=== PATIENT | female | born 1990 | race Caucasian/White ===

== ENCOUNTER 2016-07-09 20:00 | Emergency (ER) | payer BC ==
--- NOTE | 2016-07-09 20:24 | ER Document Report ---
ED Medical Screen (RME) - General Stated Complaint: LEFT LEG SWELLING/PAIN Time seen by provider: 20:20 Mode of Arrival: Ambulatory Information source: Patient Notes: 25-year-old female normally healthy started having left lateral lower leg pain on Friday. There was no injury or exercise. She noticed a lump on when to lower lateral leg tonight. The pain radiates into her left calf. No history of hormones, Implanon, cancer, travel, or cancer. Denies . TRAVEL OUTSIDE OF THE [place] IN LAST 30 DAYS: No - Related Data Allergies/Adverse Reactions: No Known Allergies Allergy (Verified 10/21/15 18:57) Past Medical History Past Surgical History: Reports: Hx Oral Surgery - wisdom teeth removed - Immunizations Hx Diphtheria, Pertussis, Tetanus Vaccination: Yes
[2016-07-09 20:27] VITALS: BP 130/74
--- NOTE | 2016-07-09 21:26 | ER Document Report ---
ED Extremity Problem, Lower - General Chief Complaint: Leg Pain Stated Complaint: LEFT LEG SWELLING/PAIN Time seen by provider: 21:24 Mode of Arrival: Ambulatory Information source: Patient TRAVEL OUTSIDE OF THE [place] IN LAST 30 DAYS: No - HPI Patient complains to provider of: Pain, Swelling Location: Leg Occurred: Other - Friday 4 days ago Onset/Duration: Gradual Quality of pain: Achy, Fullness Severity: Mild Pain Level: 2 Recent injury: No Exacerbated by: Movement Relieved by: Nothing Notes: Patient is a 25-year-old female presenting to the emergency room complaining of left calf pain that's been present 3-4 days, she also notes a slight increased swelling to the lateral portion of her left lower extremity over the past day, she denies any injury or trauma, no history of similar symptoms previously, no chest pain or shortness of breath, patient is not a smoker, has had no recent surgeries, does not take oral control - Related Data Allergies/Adverse Reactions: No Known Allergies Allergy (Verified 10/21/15 18:57) Past Medical History - General Information source: Patient - Social History Smoking Status: Never Smoker Family History: Reviewed & Not Pertinent Patient has suicidal ideation: No Patient has homicidal ideation: No Past Surgical History: Reports: Hx Oral Surgery - wisdom teeth removed - Immunizations Hx Diphtheria, Pertussis, Tetanus Vaccination: Yes Review of Systems - Review of Systems Constitutional: No symptoms reported EENT: No symptoms reported Cardiovascular: No symptoms reported Respiratory: No symptoms reported Gastrointestinal: No symptoms reported Genitourinary: No symptoms reported Female Genitourinary: No symptoms reported Musculoskeletal: See HPI Skin: No symptoms reported Hematologic/Lymphatic: No symptoms reported Neurological/Psychological: No symptoms reported -: Yes All other systems reviewed and negative Physical Exam - Vital signs Vitals: Temp Pulse Resp BP Pulse Ox 98.5 F 72 18 130/74 H 99 07/09/16 20:08 07/09/16 20:08 07/09/16 20:08 07/09/16 20:08 07/09/16 20:08 Interpretation: Normal - Notes Notes: - General General appearance: Appears well, Alert In distress: None - HEENT Head: Normocephalic, Atraumatic Eyes: Normal Conjunctiva: Normal Extraocular movements intact: Yes Eyelashes: Normal Pupils: PERRL - Respiratory Respiratory status: No respiratory distress - Cardiovascular Rhythm: Regular - Abdominal Inspection: Normal - Back Back: Normal - Extremities General upper extremity: Normal inspection General lower extremity: Mild tenderness to palpate in the left calf, distal sensation and motor is intact - Neurological Neuro grossly intact: Yes Orientation: AAOx4 Lena Coma Scale Eye Opening: Spontaneous Mchenry Coma Scale Verbal: Oriented Lena Coma Scale Motor: Obeys Commands Mchenry Coma Scale Total: 15 - Psychological Associated symptoms: Normal affect, Normal mood - Skin Skin Temperature: Warm Skin Moisture: Dry Skin Color: Normal Course - Re-evaluation Re-evalutation: 07/09/16 22:06 Lower extremity Doppler shows no evidence of DVT, patient was informed of this finding, was advised to take Motrin 600 mg 3 times a day, follow up with an orthopedist for further evaluation and treatment, return if symptoms worsen, patient acknowledges understanding and agreement with this plan - Vital Signs Vital signs: Temp Pulse Resp BP Pulse Ox 98.5 F 72 18 130/74 H 99 07/09/16 20:08 07/09/16 20:08 07/09/16 20:08 07/09/16 20:08 07/09/16 20:08 - Diagnostic Test Radiology reviewed: Image reviewed, Reports reviewed Discharge - Discharge Clinical Impression: Pain of left calf Condition: Stable Disposition: HOME, SELF-CARE Instructions: Leg Pain Nonspecific ([facility]) Additional Instructions: Follow up with your primary care provider and an orthopedic surgeon in one to 2 days. Return to the emergency room immediately if symptoms worsen or any additional concerns. Ice and elevate the affected extremity. Limit weightbearing. Prescriptions: Ibuprofen [Motrin 600 Mg Tablet] 600 mg PO TID #30 tablet Referrals: LATOYA AVILA MD [Primary Care Provider] - Follow up as needed DUANE CLAYOTN DO [ACTIVE STAFF] - Follow up as needed
== END 2016-07-09 22:21 | disposition home or self-care (01) ==
LOC: ER 20:00
DX: M79.662 Pain in left lower leg (principal); M79.89 Other specified soft tissue disorders
CPT/HCPCS: 93971; 99283